=== PATIENT | female | born 1965 | race Caucasian/White ===

== ENCOUNTER 2023-01-16 08:22 | Day surgery (SDC) | payer BC, SELFPAY ==
--- NOTE | 2023-01-07 12:43 | PCM.HP.BLA ---
History and Physical Date of Admission: 01/09/23 Pre-Op History and Physical ? HPI: The patient is a 57 year old female presenting for pre-operative visit. She is scheduled for TLH, Bilateral salpingectomy, cystoscopy, for AUB, fibroid uterus, Dysmenorrhea on 01/09/23. Procedure discussed along with risks, benefits and complications. Other alternatives discussed for management. Consent form signed? Yes. ? ? PAST MEDICAL HISTORY PAST MEDICAL HISTORY Diagnosis Date ? Depression ? ? GERD (gastroesophageal reflux disease) ? ? Hyperlipidemia ? ? Migraines ? ? Seasonal allergies ? ? ? PAST SURGICAL HISTORY PAST SURGICAL HISTORY Procedure Laterality Date ? APPENDECTOMY ? 1975 ? BREAST REDUCTION Bilateral 08/04/2018 ? Dr. Goodwin ? SECTION HX ? 1992 ? SECTION HX ? 1986 ? EGD TRANSORAL BIOPSY SINGLE/MULTIPLE ? 03/30/2020 ? Dr. Mccabe ? ESOPHAGEAL MOTILITY STUDY W/INTERP&RPT ? 03/30/2020 ? Dr. Mccabe ? GASTROESOPHAG REFLX TEST W/TELEMTRY PH ELTRD ? 03/30/2020 ? Dr. Mccabe ? TUBAL LIGATION ? 1992 ? ? ? CURRENT MEDICATIONS Current Outpatient Medications Medication Sig Dispense Refill ? diphenhydramine HCl (ALLERGY ORAL) Take by mouth. ? ? ? fenofibrate nanocrystallized (TRICOR) 145 mg tablet Take 1 tablet by mouth once daily. 30 tablet 2 ? diclofenac potassium (CATAFLAM) 50 mg tablet Take 1 tablet by mouth twice daily. 60 tablet 2 ? Cholecalciferol, Vitamin D3, 125 mcg (5,000 unit) cap Take 1 capsule by mouth once daily. 30 capsule 9 ? OTC PRODUCT Biotin ? ? ? esomeprazole magnesium 20 mg TbEC Take 24 mg by mouth once daily. ? ? ? No current facility-administered medications for this visit. ? ? ALLERGIES: Patient has no known allergies. ? PERSONAL HISTORY: SOCIAL HISTORY Social History ? Tobacco Use ? Smoking status: Former ? ? Types: Cigarettes ? ? Start date: 08/25/1990 ? ? Quit date: 2009 ? ? Years since quittin.3 ? Smokeless tobacco: Never Vaping Use ? Vaping Use: Never used Substance Use Topics ? Alcohol use: Yes ? ? Comment: rarely ? Drug use: No ? FAMILY HISTORY: FAMILY HISTORY FAMILY HISTORY Problem Relation Age of Onset ? Hyperlipidemia Mother ? ? other (throat cancer) Paternal Grandmother ? ? ? REVIEW OF SYMPTOMS: negative except as noted above PHYSICAL EXAMINATION: ? VITALS: Blood pressure 120/74, weight 182 lb (82.6 kg), last menstrual period 11/03/2022. ? GENERAL: The patient is well nourished, well hydrated in no acute distress. , The patient is oriented to time, place, and person. NECK: Supple. No lymphadenopathy, normal thyroid, no thyromegaly. LUNGS: Clear to auscultation bilaterally. no wheezes, rhonchi or rales HEART: Regular rate and rhythm, Normal heart sounds, and No murmurs or gallops ? IMPRESSION: 57yo with AUB, Fibroid uterus, Dysmenorrhea ? PLAN: TLH, Bilateral salpingectomy, Cystoscopy ? Pt has been counseled on risks/benefits and alternatives of surgery including but not limited to anesthesia, bleeding, infection, injury to pelvic structures including bowel, bladder, ureters and vessels. Pt wishes to proceed with surgery at this time. Risk of transfusion. Risk of oophorectomy. Risk of Unseen injuries or develop of fistula formation in future reviewed. ? Pre and post op instructions reviewed. ? I have reviewed and updated past medical and surgical history, medications and allergies Dorothy Mckeon MD ?4:49 PM
--- NOTE | 2023-01-08 06:51 | EKG12_ITS ---
Test Reason : PRE OP Blood Pressure : / mmHG Vent. Rate : 075 BPM Atrial Rate : 075 BPM P-R Int : 158 ms QRS Dur : 076 ms QT Int : 390 ms P-R-T Axes : 070 074 055 degrees QTc Int : 435 ms Normal sinus rhythm Normal ECG Confirmed by HARESH MAST, KACEY ([id number]), movie editor MARGARITO DOMINGUEZ ([id number]) on 01/09/2023 9:56:33 AM Referred By: Dorothy Chun Confirmed By:KACEY HUTSON MD
[2023-01-08 07:58] LABS: Hematocrit 38.1 % (37-47); Hemoglobin 12.2 g/dL (12.0-15.0); Mean Corpuscular Hgb 29.9 pg (27.0-32.0); Mean Corpuscular Volume 93.4 fL (81-99); Mean Platelet Vol. 10.8 fl (6.2-12.0); Platelet Count 212 K/mm3 (150-450); RBC Distribution Width CV 13.2 % (11.6-14.6); RBC Distribution Width SD 45.1 fl (35.1-43.9); Red Blood Count 4.08 M/mm3 (4.2-5.4); White Blood Count 4.7 K/mm3 (4.4-11.0)
[2023-01-08 08:21] LABS: Magnesium 2.3 mg/dL (1.6-2.6)
[2023-01-08 08:25] LABS: Anion Gap 6 (5-15); BUN 27 mg/dL (7-18); BUN/Creat Ratio 28.5 RATIO (10-20); Calcium,Total 9.1 mg/dL (8.5-10.1); Chloride 111 mmol/L (98-107); Creatinine, Serum 0.95 mg/dL (0.55-1.02); EST Glomerular Filtration Rate 65 mL/min (>60); Est Glom Filt Rate - Afr Amer 79 mL/min (>60); Glucose 104 mg/dL (74-106); Potassium 4.6 mmol/L (3.5-5.1); Sodium Level 140 mmol/L (136-145)
[2023-01-09 05:40] VITALS: BP 154/84; PULSE 66; RESP 18; TEMP 36.9; O2SAT 99; BMI 35.4
[2023-01-09] MEDS: Magnesium 1 GM over 15 mins IV (05:50)
[2023-01-09] MEDS: Lactated Ringers 1,000 ML 40 ML IV (05:55)
[2023-01-09] MEDS: Phenazopyridine 95 MG Tablet 190 MG PO (06:14)
[2023-01-09] MEDS: Enoxaparin 40 MG/0.4 ML Syringe SC (06:15)
[2023-01-09] MEDS: Celecoxib 200 MG Capsule 400 MG PO (06:15)
[2023-01-09] MEDS: Scopolamine 1mg/72hr Patch 1 PATCH TD (06:15)
[2023-01-09] MEDS: Gabapentin 600 MG Tablet PO (06:15)
[2023-01-09] MEDS: Acetaminophen 500 MG Tablet 1000 MG PO (06:15)
--- NOTE | 2023-01-09 08:31 | SUR.PREOP ---
surgery cancelled for today as insurance has not approved surgery
--- NOTE | 2023-01-13 08:14 | PCM.HP.BLA ---
History and Physical Date of Admission: 01/16/23 History and Physical Date of Admission: 01/09/23 Pre-Op History and Physical ? HPI: The patient is a 57 year old female presenting for pre-operative visit. She is scheduled for TLH, Bilateral salpingectomy, cystoscopy, for AUB, fibroid uterus, Dysmenorrhea on 01/09/23. ? Procedure discussed along with risks, benefits and complications.? Other alternatives discussed for management. Consent form signed? Yes.? ? ? PAST MEDICAL HISTORY PAST MEDICAL HISTORY Diagnosis Date ? Depression ? ? GERD (gastroesophageal reflux disease) ? ? Hyperlipidemia ? ? Migraines ? ? Seasonal allergies ? PAST SURGICAL HISTORY PAST SURGICAL HISTORY Procedure Laterality Date ? APPENDECTOMY ? 1975 ? BREAST REDUCTION Bilateral 08/04/2018 ? Dr. Goodwin ? SECTION HX ? 1992 ? SECTION HX ? 1986 ? EGD TRANSORAL BIOPSY SINGLE/MULTIPLE ? 03/30/2020 ? Dr. Mccabe ? ESOPHAGEAL MOTILITY STUDY W/INTERP&RPT ? 03/30/2020 ? Dr. Mccabe ? GASTROESOPHAG REFLX TEST W/TELEMTRY PH ELTRD ? 03/30/2020 ? Dr. Mccabe ? TUBAL LIGATION ? 1992 ? ? ? CURRENT MEDICATIONS Current Outpatient Medications Medication Sig Dispense Refill ? diphenhydramine HCl (ALLERGY ORAL) Take by mouth. ? ? ? fenofibrate nanocrystallized (TRICOR) 145 mg tablet Take 1 tablet by mouth once daily. 30 tablet 2 ? diclofenac potassium (CATAFLAM) 50 mg tablet Take 1 tablet by mouth twice daily. 60 tablet 2 ? Cholecalciferol, Vitamin D3, 125 mcg (5,000 unit) cap Take 1 capsule by mouth once daily. 30 capsule 9 ? OTC PRODUCT Biotin ? ? ? esomeprazole magnesium 20 mg TbEC Take 24 mg by mouth once daily. ? ? ? No current facility-administered medications for this visit. ? ? ALLERGIES: Patient has no known allergies. ? PERSONAL HISTORY: SOCIAL HISTORY Social History ? Tobacco Use ? Smoking status: Former ? ? Types: Cigarettes ? ? Start date: 08/25/1990 ? ? Quit date: 2009 ? ? Years since quittin.3 ? Smokeless tobacco: Never Vaping Use ? Vaping Use: Never used Substance Use Topics ? Alcohol use: Yes ? ? Comment: rarely ? Drug use: No ? ? FAMILY HISTORY: FAMILY HISTORY FAMILY HISTORY Problem Relation Age of Onset ? Hyperlipidemia Mother ? ? other (throat cancer) Paternal Grandmother ? ? ? REVIEW OF SYMPTOMS: negative except as noted above ? PHYSICAL EXAMINATION: ? VITALS: Blood pressure 120/74, weight 182 lb (82.6 kg), last menstrual period 11/03/2022. ? GENERAL:? The patient is well nourished, well hydrated in no acute distress.? , The patient is oriented to time, place, and person. NECK: Supple. No lymphadenopathy, normal thyroid, no thyromegaly. LUNGS: Clear to auscultation bilaterally. no wheezes, rhonchi or rales HEART: Regular rate and rhythm, Normal heart sounds, and No murmurs or gallops ? IMPRESSION: 57yo with AUB, Fibroid uterus, Dysmenorrhea ? PLAN: ? TLH, Bilateral salpingectomy, Cystoscopy ? Pt has been counseled on risks/benefits and alternatives of surgery including but not limited to anesthesia, bleeding, infection, injury to pelvic structures including bowel, bladder, ureters and vessels.? Pt wishes to proceed with surgery at this time. Risk of transfusion. Risk of oophorectomy. Risk of Unseen injuries or develop of fistula formation in future reviewed.? ? Pre and post op instructions reviewed. ? I have reviewed and updated past medical and surgical history, medications and allergies Dorothy Mckeon MD
[2023-01-16] VITALS (9 sets, daily range): BP systolic 108–129; BP diastolic 51–78; PULSE 53–69; RESP 16; TEMP 36.6–38; O2SAT 97–100; BMI 34.6
[2023-01-16] MEDS: Enoxaparin 40 MG/0.4 ML Syringe SC (08:58)
[2023-01-16] MEDS: Magnesium 1 GM over 15 mins IV (08:58)
[2023-01-16] MEDS: Lactated Ringers 1,000 ML 40 ML IV (08:58)
[2023-01-16] MEDS: Scopolamine 1mg/72hr Patch 1 PATCH TD (08:59)
[2023-01-16] MEDS: Gabapentin 600 MG Tablet PO (08:59)
[2023-01-16] MEDS: Celecoxib 200 MG Capsule 400 MG PO (09:00)
[2023-01-16] MEDS: Acetaminophen 500 MG Tablet 1000 MG PO (09:00)
[2023-01-16] MEDS: Phenazopyridine 95 MG Tablet 190 MG PO (09:00)
[2023-01-16 09:41] LABS: Bedside Glucose 93 mg/dL (74-106)
--- NOTE | 2023-01-16 10:25 | HYST_PTH ---
PATIENT: MARIO CADENA LOC: [facility] [place] U#:[id number] AGE/SX: 57/F ROOM: RE01/16/[address]: Dr. Dorothy Chun, MDDOB: 1965 BED: DIS: 01/16/2023 SPEC #: [id number] RECD: 01/16/23 13:54 STATUS: JORJE ADAMYue #: [id number] CARLOS: 01/16/23 10:[address]: Dorothy Chun DEPT: SURGICAL PATHOLOGY RECD BY: Melody Bynum ENTERED: 01/16/23 13:59 SP TYPE: HYSTERECT OTHR DR: Joana Tony, CHRISTIAN Tissues: Uterus, NOS Procedures: Surgery Specimen Level V HEADER OPERATION: ERAS, total lap hysterectomy, salpingectomy, cystoscopy PRE-OP DIAGNOSIS: Abnormal uterine bleeding, fibroid uterus, dysmenorrhea TISSUE SUBMITTED: Uterus, cervix, bilateral tubes MICROSCOPIC DIAGNOSIS Uterus, hysterectomy: Cervix ? focal endometriosis. Endometrium ? weakly proliferative endometrium with focal glandular breakdown. Myometrium ? adenomyosis and leiomyomas. One fallopian tube with no pathologic change. The other fallopian tube with hydrosalpinx and benign paratubal cyst. AM:eduardo 01/17/2023 COMMENT Case has been reviewed in consultation with Dr. Edmonds who concurs with the above diagnosis. IDC:[facility] MICROSCOPIC DESCRIPTION Slides are reviewed. GROSS DESCRIPTION Received in fixative is one container labeled with the patient's name and designated uterus, cervix, bilateral fallopian tubes. The specimen consists of a hysterectomy specimen consisting of uterus with cervix and detached bilateral fallopian tubes. The uterus with cervix weighs 104 gm and measures 10.5 x 6.0 x 4.0 cm. The serosal surface is focally ragged. The ectocervical mucosa is unremarkable. The external os is slit-like in contour. The endocervical canal measures 3.5 cm in length and the endocervical mucosa is leary, glistening and unremarkable. The triangular endometrial cavity measures 5.0 cm in length and 2.5 cm in width. The endometrium is leary, glistening without any mass lesion and measures 0.1 cm in thickness. Sections of the uterine wall reveal multiple intramural nodular masses. The largest mass measures 0.5 cm in greatest dimension. The fallopian tubes are not oriented as right or left and measures 4.0 cm in length and 0.4 cm in diameter and 5.0 cm in length and 0.5 cm in diameter. The fimbrial end is identified. The proximal portion of one fallopian tube reveals a mildly dilated lumen measuring 0.2 cm in greatest dimension. Sections reveal unremarkable cut surfaces. Reproducer sections are submitted in nine cassettes as follows: 1 - anterior cervix, 2 - posterior cervix, 3 & 4 - anterior uterine wall, 5 & 6 - posterior uterine wall, 7 - intramural nodular masses, 8 - one fallopian tube, 9??second fallopian tube and dilated lumen. / SJ:rg 01/16/2023 TC:5 CPT: 96826
[2023-01-16] MEDS: Cefazolin 2 GM in 0.9% Normal Saline 100 ML IV (10:52)
[2023-01-16] MEDS: dexAMETHasone 4 MG/ML Vial 8 MG IV (11:10)
[2023-01-16] MEDS: Bupivacaine Mpf 0.5% 30 ML VIAL (11:20)
[2023-01-16] MEDS: Ondansetron 4 MG/2 ML Vial IV (12:30)
--- NOTE | 2023-01-16 12:49 | OP.PCM_ITS ---
Report of Operation Date of Procedure: 01/16/23 Pre-Operative Diagnosis: AUB, submucosal fibroid uterus, Suspect adenomyosis Post-Operative Diagnosis: same, pelvic and omental adhesions Surgery/Procedure Performed:: TLH, Bilateral salingectomy, Cystoscopy Description of Surgical Findings:: Omental adhesions to anterior abdominal wall. bladder adhesions to lower uterine segment. normal tubes and ovaries Surgeon: Dorothy Chun process improvement consultant: Akiko Ramos process improvement consultant: loretta medina ms3 Type of Anesthesia: General and Local Special Medications: 0.5%marcaine Specimen's removed: uterus, cervix, bilateral fallopian tubes Drains: none Estimated Blood Loss (mL): 50 Fluids Replaced: 1000 cc Description of Procedure: Patient take to OR and prepped and draped in usual sterile fashion in dorsal lithotomy position with her arms tucked in a neurologically safe and neutral position. The uterus sounded to 7.5 cm. The 3cm office messenger uterine manipulator was sutured into place at 12 position and blas were placed. Attention was turned to the abdomen. All port sites were infiltrated with 0.5%marcaine before the incisions were made. The anterior abdominal wall was tented up with towel clamps and using a direct entry approach a 5 mm intraumbilical port was placed. Intraperitoneal placement was confirmed with the laparoscope and the pneumoperitoneum was created. The patient was placed in Trendelenburg and 5 mm right and left lower quadrant ports were placed under direct visualization. Air seal rapid insufflator was used. OMental ahesions noted. 4th left upper quadrant port placed in same manner to allow better visualization to allow for lysis of adhesions- this was done using the ligasure in clear spaced. The bowel was swept away. Ovaries appeared normal. The mesosalpinx starting at fimbriated end were grasped, clamped, sealed and transected with the Ligasure. The round ligaments were divided. The anterior peritoneum was dissected down to create the bladder flap with blunt dissection and the LigaSure. The uterine arteries were isolated, clamped, sealed and cut. There was minimal back bleeding from the uterus. Straight bites on uterine artieries performed to drop them off the cuff. The manipulator was used as guide to create colpotomy using monopolar tip of ligasure. once specimen was removed attention was turned to vaginal portion. The specimen was handed off. The cuff was closed with interrupted 0-vicryl figure of 8 sutures. Cystoscopy was performed bilateral ureters were visualized with good efflux. bladder was intact. blas replaced and sponge stick placed in vagina. The pneumoperitoneum was recreated and the cuff and pedicles were hemostatic. There was a small area near right uterine artery noted to be oozing- coagulated with ligasure and excellent hemostasis acheieve. Daniella was placed over cuff and pedicles. The skin incisions were closed with skin glue and 3-0 monocryl in the LLQ port site. The vaginal sweep was completed by me. Grafts/Implants Used: none Grafts/Implants Used: none Procedure Start Time: 11:13 Procedure Stop Time: 12:53 Complications none Admit VTE Documentation VTE Present on Admission: Yes VTE Mechan Device Prophylaxis: SCD's VTE Pharm Prophylaxis ordered?: Yes
--- NOTE | 2023-01-16 12:55 | PCM.DC ---
Discharge Instructions Diet Discharge Diet: No restrictions Activity Discharge Activity: May Not Drive (while taking narcotics. may drive when pain controlled. ) and May Shower Return to work on:: 03/15/21 May shower in (days): 1 May resume sexual activity in: 6-8 weeks Weight Bearing Status: Full weight bearing Lifting Restrictions: 20 Additional Activity Instructions:: NOTHING IN THE VAGINA x 6-8 weeks. Dressing / Incision Call your doctor if your incision/area has: Continuous Slow Oozing, Sudden Increased Bleeding, Increased Pain/ Swelling, Increased Redness, Foul Smelling Discharge and Swelling at the incision site Call your doctor if you observe: Fever of 101 or Higher, Inability to have a bowel movement, Using more than 1 pad per hour and Uncontrolled pain Change Dressing in: leave in place till F/U (you have skin glue over incision sites- do not pick off) Cleanse incision/area with: Soap & Water, Keep Dressing Clean & Dry and - (you may let soap and water run over incision sites and dab dry. ) Follow Up Care Please Follow Up With: Dorothy Chun MD When: 2 weeks as scheduled for post op visit Test Results: Test results from this visit will be discussed in further detail at your follow-up appointment, if applicable. Discharge Plan Admission Attending Provider: Dorothy Chun Primary Care Provider: Joana Tony NP Discharge Orders/Prescriptions Prescriptions: No Action cholecalciferol (vitamin D3) 125 mcg (5,000 unit) capsule 125 mcg PO DAILY Label Comments: Take 1 capsule by mouth once daily. loratadine [Claritin] 10 mg Tablet 10 mg PO DAILY esomeprazole magnesium [Nexium] 20 mg Capsule,Delayed Release(Dr/Ec) 20 mg PO DAILY diclofenac potassium 50 mg tablet 50 mg PO BID Label Comments: Take 1 tablet by mouth twice daily. fenofibrate nanocrystallized 48 mg tablet 48 mg PO DAILY Label Comments: TAKE 1 TABLET BY MOUTH EVERY DAY Hair, Skin and Nails (biotin) 10,000 mcg Tablet,Chewable 10,000 mcg PO DAILY Referrals / Follow Up: Joana Tony NP, ESTHETICIAN/SPA COORDINATOR-C [Primary Care Provider] - Disposition Disposition (needs filled in before D/C Order can be placed): Home, Self Care
[2023-01-16] MEDS: HYDROcodone Bitartrate/Apap 5/325 Tablet PO (15:46)
[2023-01-16 15:57] LABS: Hematocrit 39.9 % (37-47); Hemoglobin 12.7 g/dL (12.0-15.0); Mean Corp Hgb Conc 31.8 g/dL (32-36); Mean Corpuscular Hgb 30.5 pg (27.0-32.0); Mean Corpuscular Volume 95.7 fL (81-99); Mean Platelet Vol. 10.7 fl (6.2-12.0); Platelet Count 230 K/mm3 (150-450); RBC Distribution Width CV 13.2 % (11.6-14.6); RBC Distribution Width SD 46.9 fl (35.1-43.9); Red Blood Count 4.17 M/mm3 (4.2-5.4); White Blood Count 12.6 K/mm3 (4.4-11.0)
== END 2023-01-16 17:40 | disposition home or self-care (01) ==
LOC: SDC 08:22 → AC 08:23
PROVIDERS: Anesthesiology; PCP Nurse Practitioner Family; Referring Provider Obstetrics & Gynecology; Visit Provider Obstetrics & Gynecology
PROC: 0UT94ZZ Resection of Uterus, Percutaneous Endoscopic Approach (ICD-10-PCS; CPT 58571; principal; 2023-01-16 10:05)
DX: D25.0 Submucous leiomyoma of uterus (principal); N80.03 Adenomyosis of the uterus; E78.5 Hyperlipidemia, unspecified; N73.6 Female pelvic peritoneal adhesions (postinfective); K21.9 Gastro-esophageal reflux disease without esophagitis; Z79.899 Other long term (current) drug therapy
CPT/HCPCS: 58571; 00840; 80048; 82962; 83735; 85027; 86850; 86900; 86901; 88307; 93005; J7120; J2405; J3475

== ENCOUNTER → 2023-04-30 | Outpatient (CLI) | payer BC, SELFPAY ==
[2023-04-30 16:23] LABS: ALB/GLOB Ratio 1.4 RATIO (0.9-2.4); AST(SGOT) 25 U/L (15-37); Alanine Aminotransfer ALT/SGPT 76 U/L (13-56); Albumin, Serum 4.4 g/dL (3.2-5.0); Alkaline Phosphatase 78 U/L (45-117); Anion Gap 6 (5-15); BUN 29 mg/dL (7-18); BUN/Creat Ratio 28.4 RATIO (10-20); Calcium,Total 9.6 mg/dL (8.5-10.1); Chloride 106 mmol/L (98-107); Creatinine, Serum 1.02 mg/dL (0.55-1.02); EST Glomerular Filtration Rate 60 mL/min (>60); Est Glom Filt Rate - Afr Amer 72 mL/min (>60); Globulin 3.2 g/dL (2.2-4.2); Glucose 114 mg/dL (74-106); Potassium 4.4 mmol/L (3.5-5.1); Protein, Total 7.6 g/dL (6.4-8.2); Sodium Level 138 mmol/L (136-145)
== END | disposition home or self-care (01) ==
LOC: LABSPEC 15:18
PROVIDERS: PCP Nurse Practitioner Family; Referring Provider Obstetrics & Gynecology; Visit Provider Obstetrics & Gynecology
DX: Z13.1 Encounter for screening for diabetes mellitus (principal); Z13.0 Encounter for screening for diseases of the blood and blood-forming organs and certain disorders involving the immune mechanism
CPT/HCPCS: 80053